=== PATIENT | female | born 1970 | race Two or more races ===

== ENCOUNTER 2018-04-25 21:32 | Emergency (ER) | payer MEDICAID, OTHER ==
[~2018-04-25] VITALS: Ht 170.2 cm; Wt 55.8 kg
--- NOTE | 2018-04-25 21:37 | NUR ---
PT BIBRA COMPLAINING OF SEVERE LOWER ABDOMINAL PAIN. NAUSEA, DIARRHEA, NO VOMITTING. PT STATES "SUDDENLY FELT PAIN LIKE I WAS GIVING AND I FELL TO MY KNEES". PT IS AAOX4. RESPIRATIONS EVEN AND UNLABORED. PLACED ON MONITOR. IV PLACED BY RA EN ROUTE TO HOSPITAL, 18G RIGHT AC
--- NOTE | 2018-04-25 21:52 | NUR ---
NUCLEAR CONTROL ROOM OPERATOR AT BEDSIDE FOR BLOOD DRAW
[2018-04-25] MEDS ORDERED: IV NS 0.9% 1,000 ML BAG IV ONE (22:00)
[2018-04-25 22:03] LABS: BASOPHILS % (AUTO) 0.5 % (0.0-2.0); HEMATOCRIT 32 % (33-45); HEMOGLOBIN 10.1 g/dL (11.5-14.8); LYMPHOCYTES # (AUTO) 2.9 /CMM (0.8-4.8); LYMPHOCYTES % (AUTO) 42.5 % (20.0-44.0); MEAN CORPUSCULAR HGB CONC 31 g/dl (31.0-36.0); MEAN CORPUSCULAR VOLUME 81 fL (82-100); MONOCYTES # (AUTO) 0.4 /CMM (0.1-1.30); MONOCYTES % (AUTO) 6.2 % (2.0-12.0); NEUTROPHILS # (AUTO) 3.4 /CMM (1.8-8.9); NEUTROPHILS % (AUTO) 49.8 % (43.0-81.0); PLATELET COUNT (AUTO) 276 /CMM (150-450); RDW COEFFICIENT OF VARIATION 16.9 (11.5-15.0); RED BLOOD CELL COUNT(AUTO) 3.98 MIL/uL (4.0-5.2); WHITE BLOOD COUNT (AUTO) 6.8 K/uL (4.3-11.0)
[2018-04-25 22:13] LABS: CREATININE 0.8 mg/dL (0.6-1.3); POTASSIUM 3.7 mmol/L (3.5-5.1)
--- NOTE | 2018-04-25 22:25 | NUR ---
PT ABLE TO AMBULATE TO BATHROOM. STEADY GAIT. URINE COLLECTED. CALLED LAB FOR FELTING MACHINE OPERATOR
[2018-04-25 22:57] LABS: APPEARANCE,URINE SL CLOUDY (CLEAR); BILIRUBIN,URINE NEGATIVE (NEGATIVE); BLOOD, URINE NEGATIVE Ery/uL (NEGATIVE); COLOR,URINE DARK YELLO (YELLOW); KETONES,URINE 1+ (NEGATIVE); LEUKOCYTE ESTERASE ,URINE TRACE (NEGATIVE); NITRITE, URINE NEGATIVE (NEGATIVE); PROTEIN,URINE 2+ mg/dl (NEGATIVE); UGLUCOSE NEGATIVE (NEGATIVE)
[2018-04-25 23:05] LABS: BACTERIA,URINE Few /HPF (None Seen); RBC,URINE 0-2 /HPF (0-2); SQUAMOUS EPITHELIAL CELL,UR Few /HPF (None Seen)
[2018-04-25 23:06] LABS: MUCUS,URINE Moderate /LPF (None Seen)
--- NOTE | 2018-04-25 23:41 | NUR ---
Patient discharged to home in stable condition. Written and verbal after care instructions given. Patient verbalizes understanding of instruction. IV removed. Catheter intact and site benign. Pressure and 4x4 applied to site. No bleeding noted. Pt ambulatory with a steady gait
[2018-04-25 23:42] VITALS: BP 97/62
== END 2018-04-25 23:43 | disposition home or self-care (01) ==
LOC: ER 21:33
DX: R55 Syncope and collapse (principal); R19.7 Diarrhea, unspecified
CPT/HCPCS: 36415; 80048; 81001; 84703; 85025; 93005; 96360; 99285; A4606; J7030; Z7610; 81000-TC; 87086-TC

== ENCOUNTER 2019-02-05 15:42 | Emergency (ER) | payer MEDICAID ==
[~2019-02-05] VITALS: Ht 167.6 cm; Wt 53.1 kg
[2019-02-05 15:52] VITALS: BP 96/67
== END 2019-02-05 17:22 | disposition home or self-care (01) ==
LOC: ER 15:46
DX: L84 Corns and callosities (principal); M79.672 Pain in left foot
CPT/HCPCS: 73630-TC

== ENCOUNTER 2020-12-18 09:58 | Emergency (ER) | payer MEDICAID ==
[~2020-12-18] VITALS: Ht 170.2 cm; Wt 54.4 kg
[2020-12-18 10:08] VITALS: BP 108/69
--- NOTE | 2020-12-18 10:40 | NUR ---
WELFARE CASE WORKER AT BEDSIDE FOR XRAY.
[2020-12-18] MEDS ORDERED: NAPR-1192 PO (12:00)
== END 2020-12-18 12:25 | disposition home or self-care (01) ==
LOC: ER 10:05
DX: S62.614A Displaced fracture of proximal phalanx of right ring finger, initial encounter for closed fracture (principal); Z79.899 Other long term (current) drug therapy; W01.0XXA Fall on same level from slipping, tripping and stumbling without subsequent striking against object, initial encounter; Y93.21 Activity, ice skating; Y92.89 Other specified places as the place of occurrence of the external cause; Y99.8 Other external cause status
CPT/HCPCS: 73110; 73130-TC

== ENCOUNTER 2023-05-28 10:56 | Emergency (ER) | payer OTHER ==
[~2023-05-28] VITALS: Ht 162.6 cm; Wt 54.4 kg
[~2023-05-28 10:56] MED LIST: NAPR-1192 PO
[2023-05-28 11:06] VITALS: BP 102/68; TEMP 99.1; O2SAT 98
[2023-05-28] MEDS ORDERED: FLUORESCEIN SODIUM OPHTH 1 EA STRIP ONE (11:18)
[2023-05-28] MEDS ORDERED: FLUORESCEIN SODIUM OPHTH 1 EA STRIP OP ONE (11:30)
[2023-05-28] MEDS ORDERED: ERYT3.5O9 EACHEYE (11:46)
== END 2023-05-28 11:49 | disposition home or self-care (01) ==
LOC: ER 11:05
DX: S05.01XA Injury of conjunctiva and corneal abrasion without foreign body, right eye, initial encounter (principal); H57.11 Ocular pain, right eye; X58.XXXA Exposure to other specified factors, initial encounter; Y93.89 Activity, other specified; Y92.89 Other specified places as the place of occurrence of the external cause; Y99.8 Other external cause status